=== PATIENT | female | born 1990 | race African-American/Black ===

== ENCOUNTER 2016-05-30 00:15 | Emergency (ER) | payer MEDICAID ==
[~2016-05-30] VITALS: Ht 160 cm; Wt 93.0 kg
[2016-05-30] MEDS ORDERED: ALBUTEROL 6.7GM HFA INHALER ORI ONE (01:00)
[2016-05-30] MEDS ORDERED: ALBUTEROL (0.083%) 2.5MG/3ML NEB HHN NR (01:15)
[2016-05-30 01:20] VITALS: BP 131/81
== END 2016-05-30 01:30 | disposition home or self-care (01) ==
LOC: ER 00:16
DX: J45.901 Unspecified asthma with (acute) exacerbation (principal); F17.200 Nicotine dependence, unspecified, uncomplicated
CPT/HCPCS: 94640; 99283; J7611; Z7610